=== PATIENT | female | born 1965 | race Caucasian/White ===

== ENCOUNTER 2018-12-30 12:06 | Day surgery (SDC) | payer OTHER ==
[~2018-12-30] VITALS: Ht 152.4 cm; Wt 57.7 kg
[~2018-12-30 12:06] MED LIST: PROPOFOL 200 MG INJ ONE
[2018-12-30 13:37] VITALS: Ht 152.4 cm; Wt 57.7 kg
[2018-12-30 13:41] VITALS: BP 142/65; PULSE 59; RESP 16
[2018-12-30] MEDS ORDERED: [UNRECOGNIZED DRUG - OTHER] (13:48)
[2018-12-30] MEDS ORDERED: LOSA100T15 PO (13:48)
[2018-12-30] MEDS ORDERED: ASPI-903 PO (13:48)
[2018-12-30] MEDS ORDERED: POLY17PO28 PO (13:48)
--- NOTE | 2018-12-30 14:09 | PREAC ---
Date/Time of Note Date/Time of Note DATE: 12/30/18 TIME: 14:08 Anesthesia Eval and Record Evaluation Time Pre-Procedure Interview DATE: 12/30/18 TIME: 14:08 Age 53 Sex female NPO: 8 hrs Preoperative diagnosis CHANGE ON BOWEL HABITS, ABDOMINAL PAIN BLOATING Planned procedure COLONOSCOPY Past Medical History Past Medical History: Includes Cardio: HTN, Dyslipidemia Pulm: Asthma Surgery & Anesthesia Issues No known issue Meds Anticoagulation: No Beta Kristine within 24 hr: No Reason Beta Kristine not given: Pt. not on B-Kristine Reported Medications [[place] [facility]] No Conflict Check 12/30/18 Polyethylene Glycol* (Polyethylene Glycol*) 17 Gm Powd.pack, 8.5 GM PO DAILY, #30 PACKET 12/30/18 Aspirin* (Aspirin* Chew) 81 Mg Tab.chew, 81 MG PO DAILY, TAB.CHEW 12/30/18 Losartan Potassium* (Losartan Potassium*) 100 Mg Tablet, 100 MG PO DAILY, TAB 12/30/18 Meds reviewed: Yes Allergies Allergies Reviewed: Yes Labs/Studies Labs Reviewed: Reviewed by anesthesiologist test: Negative Pre-procedure Exam Last vitals Vital Signs Date Temp Pulse Resp B/P (MAP) Pulse Ox O2 O2 Flow FiO2 Time Delivery Rate 12/30/18 98.1 59 16 142/65 99 Room Air 13:41 (90) Airway: Adequate mouth opening, Adequate thyromental dist Mallampati: Mallampati II Teeth: Normal Lung: Normal Heart: Normal ASA Physical Status ASA physical status: 2 Emergency: None Planned Anesthetic General/MAC: MAC Pre-operative Attestations Prior to commencing anesthesia and surgery, the patient was re-evaluated, there was verification of: *The patient's identity *The results of appropriate recent lab work and preoperative vital signs *The above evaluation not changing prior to induction *Anesthetic plan, risk benefits, alternative and complications discussed with patient/family; questions answered; patient/family understands, accepts and wishes to proceed. Too Urias M.D. December 30, 2018 14:09
[2018-12-30] MEDS ORDERED: LIDOCAINE 2% (SDV) 5 ML INJ ONE (14:24)
[2018-12-30] MEDS ORDERED: PROPOFOL 40 ML ONE (14:24)
--- NOTE | 2018-12-30 14:35 | HPN ---
Date/Time of Note Date/Time of Note DATE: 12/30/18 TIME: 14:34 Interval H&P Admission Note Pt. seen H&P reviewed: No system changes LIS NOVA December 30, 2018 14:34
--- NOTE | 2018-12-30 14:41 | PAC ---
Date/Time of Note Date/Time of Note DATE: 12/30/18 TIME: 14:40 Post-Anesthesia Notes Post-Anesthesia Note Last documented vital signs Vital Signs Date Temp Pulse Resp B/P (MAP) Pulse Ox O2 O2 Flow FiO2 Time Delivery Rate 12/30/18 98.1 59 16 142/65 99 Room Air 13:41 (90) Activity: WNL Respiratory function: WNL Cardiovascular function: WNL Mental status: Baseline Pain reasonably controlled: Yes Hydration appropriate: Yes Nausea/Vomiting absent: Yes Too Urias M.D. December 30, 2018 14:40
[2018-12-30 15:10] VITALS: BP 114/60; RESP 20
== END 2018-12-30 16:10 | disposition home or self-care (01) ==
LOC: GIL 12:06
PROVIDERS: ATTEND Internal Medicine Gastroenterology
DX: Z12.11 Encounter for screening for malignant neoplasm of colon (principal); K51.20 Ulcerative (chronic) proctitis without complications; I10 Essential (primary) hypertension; J45.909 Unspecified asthma, uncomplicated
CPT/HCPCS: 45331; 84703; 88305; Z7610